=== PATIENT | female | born 1965 | race Two or more races ===

== ENCOUNTER 2023-05-31 15:06 | Emergency (ER) | payer OTHER ==
[~2023-05-31] VITALS: Ht 175.3 cm; Wt 79.8 kg
[~2023-05-31 15:06] MED LIST: ACIPHEX20 MG PO; BENTYL10 MG/ML IM; GASTRINEX CAPSU1 CAP PO; NEXIUM20 MG/PACK PO; SINGULAIR10 MG PO; [UNRECOGNIZED DRUG - SUPPLY] MC
[2023-05-31] MEDS ORDERED: PROTONIX40 MG (15:55)
== END 2023-05-31 19:48 | disposition home or self-care (01) ==
LOC: ER 15:06
DX: R53.1 Weakness (principal); Z88.8 Allergy status to other drugs, medicaments and biological substances